=== PATIENT | female | born 1970 | race Asian ===

== ENCOUNTER 2018-06-25 10:41 | Outpatient (CLI) | payer OTHER ==
--- NOTE | 2018-06-25 13:26 | MMO ---
BILATERAL SCREENING MAMMOGRAM: Date: 06/25/18 HISTORY: 48-year-old female. Routine screening mammography. COMPARISON: 06/04/12, 06/04/13, 03/20/15, 03/21/15, and 06/24/17. TECHNIQUE: CC and MLO views of both breasts are submitted for interpretation. This patient's mammogram was reviewed with the assistance of computer-aided detection. FINDINGS: The breasts are composed of scattered fibroglandular tissue. Bilaterally, no suspicious dominant mass , architectural distortion, or suspicious calcifications. IMPRESSION: BIRADS 1: Negative RECOMMENDATION: Annual mammogram. POS: [facility]
== END 2018-06-25 10:42 | disposition home or self-care (01) ==
LOC: SCSMAMMO 10:41
PROVIDERS: ATTEND Family Medicine
DX: Z12.31 Encounter for screening mammogram for malignant neoplasm of breast (principal)
CPT/HCPCS: 77067

== ENCOUNTER 2024-06-22 09:30 | Outpatient (CLI) | payer OTHER | END 2024-06-22 09:31 | disposition home or self-care (01) | LOC: SCSRAD 09:30 | PROVIDERS: ATTEND Family Medicine | DX: M25.562 Pain in left knee (principal); M17.12 Unilateral primary osteoarthritis, left knee ==